=== PATIENT | female | born 1960 | race Caucasian/White ===

== ENCOUNTER 2025-09-02 13:55 | Inpatient (IN) | payer OTHER, MEDICAID ==
[~2025-09-02] VITALS: Ht 162.6 cm; Wt 50.6 kg
[2025-09-02 14:57] LABS: PLATELET COUNT (AUTO) 234 K/uL (150-450); RED BLOOD CELL COUNT(AUTO) 4.26 MIL/uL (4.0-5.2); RED CELL DISTRIBUTION WIDTH 13.5 % (11.5-15.0); WHITE BLOOD COUNT (AUTO) 6.6 K/uL (4.3-11.0)
[2025-09-02 15:09] LABS: CALCIUM, SERUM 9.2 mg/dL (8.5-10.1); CREATININE 0.9 mg/dL (0.6-1.3); SODIUM SERUM 138 mmol/L (136-145); UREA NITROGEN, BLOOD 20 mg/dL (7-18)
[2025-09-02 15:22] LABS: ASPARTATE AMINOTRANSFERASE 20 U/L (15-37); NT-PRO BNP 261 pg/mL (0-125); TOTAL PROTEIN, SERUM 7.9 g/dL (6.4-8.2)
[2025-09-02 15:34] LABS: ALCOHOL, BLOOD < 3 mg/dL (0-10)
[2025-09-02 16:35] LABS: APPEARANCE,URINE CLEAR (CLEAR); BLOOD, URINE 1+ Ery/uL (NEGATIVE); LEUKOCYTE ESTERASE ,URINE NEGATIVE (NEGATIVE); NITRITE, URINE NEGATIVE (NEGATIVE); UGLUCOSE NEGATIVE (NEGATIVE)
[2025-09-02 16:39] LABS: ADD URINE CULTURE NO; SQUAMOUS EPITHELIAL CELL,UR Few /HPF (None Seen)
[2025-09-02 16:40] LABS: AMPHETAMINE, URINE NEGATIVE (NEGATIVE); BARBITURATE, URINE NEGATIVE (NEGATIVE); BENZODIAZEPINE, URINE NEGATIVE (NEGATIVE); CANNABINOID, URINE NEGATIVE (NEGATIVE); COCCAINE, URINE NEGATIVE (NEGATIVE); OPIATE, URINE NEGATIVE (NEGATIVE)
[2025-09-02] MEDS ORDERED: NITROGLYCERIN 0.4 MG/TAB BOTTLE ONE (18:47)
[2025-09-02] MEDS ORDERED: FAMOTIDINE/PF INJ 20 MG/2 ML VIAL IV ONE (18:48)
[2025-09-02] MEDS: NITROGLYCERIN 0.4 MG/TAB BOTTLE SL ONE (18:52)
[2025-09-02] MEDS: FAMOTIDINE/PF INJ 20 MG/2 ML VIAL IV ONE (18:52)
[2025-09-02] MEDS: MORPHINE SULFATE INJ 2 MG/ML DISP.SYRIN IV ONE (19:28)
[2025-09-02] MEDS: ONDANSETRON HCL/PF 4 MG/2 ML VIAL IV ONE (19:28)
[2025-09-02] MEDS ORDERED: LORA-259 PO (22:50)
[2025-09-02] MEDS ORDERED: METO25TA6 PO (22:50)
[2025-09-02] MEDS ORDERED: ROSU10TA2 PO (22:50)
[2025-09-02] MEDS ORDERED: ASPI-1420 PO (22:50)
[2025-09-03] MEDS ORDERED: MAGNESIUM HYDROXIDE 30 ML UDC PO PRN
[2025-09-03] MEDS ORDERED: ONDANSETRON HCL/PF 4 MG/2 ML VIAL IVP PRN
[2025-09-03] MEDS ORDERED: MAG HYDROX/AL HYDROX/SIMETH 30 ML UDC PO PRN
[2025-09-03] MEDS ORDERED: Z GUARD REMEDY 4 OZ OINT TP PRN
[2025-09-03] MEDS ORDERED: ZOLPIDEM TARTRATE 5 MG TABLET PO PRN
[2025-09-03 00:09] VITALS: BP 122/73; TEMP 97.3; O2SAT 97
[2025-09-03] MEDS: ENOXAPARIN SODIUM 60 MG/0.6 ML DISP.SYRIN SQ SCH ×2 (00:32→08:48)
[2025-09-03 04:00] VITALS: BP 105/72; TEMP 97.3; O2SAT 95
[2025-09-03 06:56] LABS: PLATELET COUNT (AUTO) 230 K/uL (150-450); RED BLOOD CELL COUNT(AUTO) 4.25 MIL/uL (4.0-5.2); RED CELL DISTRIBUTION WIDTH 13.5 % (11.5-15.0); WHITE BLOOD COUNT (AUTO) 5.8 K/uL (4.3-11.0)
[2025-09-03 07:19] LABS: LDL 83.0 mg/dL (0-99)
[2025-09-03 07:40] LABS: CALCIUM, SERUM 9.3 mg/dL (8.5-10.1); CREATININE 0.9 mg/dL (0.6-1.3); PHOSPHORUS 3.9 mg/dL (2.5-4.9); SODIUM SERUM 142.0 mmol/L (136-145); UREA NITROGEN, BLOOD 16.0 mg/dL (7-18)
[2025-09-03 08:00] VITALS: BP 107/68; TEMP 98.2; O2SAT 97
[2025-09-03] MEDS: ASPIRIN EC 81 MG TABLET.DR PO SCH (08:49)
[2025-09-03] MEDS: ACETAMINOPHEN 325 MG TABLET PO PRN (11:09)
[2025-09-03 12:00] VITALS: BP 105/68; TEMP 98.6; O2SAT 97
[2025-09-03] MEDS ORDERED: ENOX60DI SQ (13:24)
[2025-09-03] MEDS ORDERED: IOHEXOL-350 100 ML VIAL IV ONE ×2 (13:35→13:54)
[2025-09-03] MEDS ORDERED: IV NS 0.9% 250 ML IV ONE (13:35)
[2025-09-03 16:00] VITALS: BP 100/62; TEMP 98.1; O2SAT 97
[2025-09-03] MEDS ORDERED: ATORVASTATIN 10 MG TABLET PO SCH ×2 (22:00)
== END 2025-09-03 17:50 | disposition home or self-care (01) | DRG 282 ==
LOC: ER 14:05 → TELE 21:08
PROVIDERS: ADMIT Nurse Practitioner Acute Care; ATTEND Nurse Practitioner Acute Care
DX: I25.10 Atherosclerotic heart disease of native coronary artery without angina pectoris (principal); I21.4 Non-ST elevation (NSTEMI) myocardial infarction; I10 Essential (primary) hypertension; I34.1 Nonrheumatic mitral (valve) prolapse; Z79.82 Long term (current) use of aspirin; Z82.49 Family history of ischemic heart disease and other diseases of the circulatory system; Z79.899 Other long term (current) drug therapy; I49.3 Ventricular premature depolarization; R00.8 Other abnormalities of heart beat
CPT/HCPCS: 36415; 70450-TC; 71045-TC; 75574; 80048-TC; 80061-TC; 80076-TC; 81001; 83735-TC; 83880; 84100-TC; 84443-TC; 84484-TC; 85025-TC; 93307-TC; G0378; G0480; J1308; J1650; J7050; Q9967